=== PATIENT | female | born 1990 | race Caucasian/White ===

== ENCOUNTER 2016-06-27 09:45 | Emergency (ER) | payer MEDICAID ==
[2012-11-23 05:38] VITALS: BMI 22.1
[~2016-06-27 09:45] MED LIST: ABILIFY10 MG PO; CELEXA20 MG PO; LORTAB 5/500 TA1 TA2 PO; MOTRIN600 MG PO; PRENATAL COMPLE1 TAB PO
== END 2016-06-27 11:40 | disposition home or self-care (01) ==
LOC: D.ER 09:45
DX: H60.01 Abscess of right external ear (principal)